=== PATIENT | female | born 2000 | race Caucasian/White ===

== ENCOUNTER 2024-12-31 14:10 | Inpatient (IN) | payer OTHER ==
[2024-12-31] MEDS: ELECTROLYTE-148 SOLN 1,000 ML IV SCH (14:45)
[2024-12-31 15:00] VITALS: BMI 29.0
[2024-12-31] MEDS ORDERED: morphine SULFATE/PF 1 MG/2 ML (2cc Syringe - QUVA) ONE (15:09)
[2024-12-31] MEDS ORDERED: PHENYLEPHRINE HCL 10 MG/1 ML SINGLE DOSE VIAL ONE (15:09)
[2024-12-31] MEDS ORDERED: KETOROLAC TROMETHAMINE 30 MG/1 ML VIAL ONE (15:09)
[2024-12-31] MEDS ORDERED: FENTANYL CITRATE/PF 50 MCG/ML VIAL ONE (15:09)
[2024-12-31] MEDS ORDERED: OXYTOCIN 10 UNITS/ML VIAL ONE (15:09)
[2024-12-31] MEDS ORDERED: ONDANSETRON 4 MG/2 ML VIAL ONE (15:09)
[2024-12-31] MEDS ORDERED: SODIUM CHLORIDE 0.9% P/F 10 ML VIAL IJ ONE (15:12)
[2024-12-31 15:13] LABS: ABSOLUTE IMMATURE GRANULOCYTES 0.09 x10^3/uL (0.0-0.031); BASOPHILS # 0.04 x10^3/uL (0.01-0.08); EOSINOPHIL % 0.1 % (0.7-5.8); EOSINOPHILS # 0.01 x10^3/uL (0.04-0.36); MCHC 32.1 g/dl (32.2-35.5); MEAN CELL VOLUME 97.6 fl (79.4-94.8); MEAN PLT VOLUME 10.0 fl (9.4-12.3); MONOCYTE # 0.80 x10^3/uL (0.24-0.86); MONOCYTE % 6.3 % (4.7-12.5); RDW 14.0 % (12.1-16.5)
[2024-12-31 15:18] LABS: INR 0.97 (0.83-1.09); PROTHROMBIN TIME (PATIENT) 10.7 SEC (9.7-13.0)
[2024-12-31 15:20] LABS: ACTIVATED PTT 25.6 SECONDS (25.2-36.5)
[2024-12-31] MEDS: CITRIC ACID/SODIUM CITRATE 30 ML UNIT-DOSE CUP PO ONE (15:30)
[2024-12-31] MEDS ORDERED: METHYLERGONOVINE MALEATE 0.2 MG/1 ML AMP IM PRN (17:03)
[2024-12-31] MEDS ORDERED: IBUPROFEN 800 MG/8 ML IJ IVPB PRN (17:04)
[2024-12-31] MEDS ORDERED: OXYTOCIN 20 UNITS in 0.9% NS 20 UNIT/1,000 ML INFUS.BAG IV ONE (17:10)
[2024-12-31] MEDS: OXYTOCIN 20 UNITS in 0.9% NS 20 UNIT/1,000 ML INFUS.BAG IV SCH (17:10)
[2024-12-31] MEDS ORDERED: ONDANSETRON 4 MG/2 ML VIAL IVPUSH PRN (17:49)
[2024-12-31 18:24] LABS: CORD BASE EXCESS -3.9 mmol/L (0-2); CORD HCO3 23.5 mmHg (20-29); CORD PCO2 51.2 mmHg (30-78); CORD pH 7.279 (7.14-7.44)
[2024-12-31 18:25] LABS: GLUCOSE,RANDOM 71.0 mg/dL (74-106)
[2024-12-31 18:25] LABS: CORD BASE EXCESS -1.7 mmol/L (0-2); CORD HCO3 24.0 mmHg (20-29); CORD PCO2 43.8 mmHg (30-78); CORD pH 7.356 (7.14-7.44)
[2024-12-31 18:27] LABS: CO2 17.0 mmol/L (21-32)
[2024-12-31 18:31] LABS: CREATININE 0.63 mg/dL (0.55-1.3)
[2024-12-31 20:27] VITALS: RESP 18
[2024-12-31] MEDS: SIMETHICONE 80 MG TAB.CHEW (FP) PO PRN (22:57)
[2024-12-31] MEDS: CEFAZOLIN SODIUM 2 GM in DEXTROSE 5%-WATER 100 ML IVPB SCH (22:57)
[2025-01-01 07:05] LABS: ABSOLUTE IMMATURE GRANULOCYTES 0.07 x10^3/uL (0.0-0.031); BASOPHILS # 0.06 x10^3/uL (0.01-0.08); EOSINOPHIL % 1.0 % (0.7-5.8); EOSINOPHILS # 0.12 x10^3/uL (0.04-0.36); MCHC 31.6 g/dl (32.2-35.5); MEAN CELL VOLUME 99.5 fl (79.4-94.8); MEAN PLT VOLUME 9.9 fl (9.4-12.3); MONOCYTE # 1.14 x10^3/uL (0.24-0.86); MONOCYTE % 9.3 % (4.7-12.5); RDW 14.0 % (12.1-16.5)
[2025-01-01] MEDS: DOCUSATE SODIUM 100 MG CAPSULE (FP) PO SCH (09:39)
[2025-01-01] MEDS: IBUPROFEN 600 MG TABLET (FP) PO PRN (09:39)
[2025-01-01] MEDS: ENOXAPARIN NA (PORCINE) 40 MG/0.4 ML DISP.SYRIN SQ SCH (13:40)
[2025-01-01] MEDS ORDERED: BISACODYL 10 MG SUPP.RECT RC PRN (17:03)
[2025-01-02] MEDS: ACETAMINOPHEN 325 MG TABLET (FP) PO PRN (09:06)
[2025-01-02] MEDS: MINERAL OIL/PET HY-PHL TOPICAL OINTMENT 454 GM JAR TP SCH (14:36)
[2025-01-03 08:31] LABS: ABSOLUTE IMMATURE GRANULOCYTES 0.05 x10^3/uL (0.0-0.031); BASOPHILS # 0.06 x10^3/uL (0.01-0.08); EOSINOPHIL % 3.6 % (0.7-5.8); EOSINOPHILS # 0.37 x10^3/uL (0.04-0.36); MCHC 31.0 g/dl (32.2-35.5); MEAN CELL VOLUME 100.8 fl (79.4-94.8); MEAN PLT VOLUME 10.2 fl (9.4-12.3); MONOCYTE # 0.93 x10^3/uL (0.24-0.86); MONOCYTE % 9.0 % (4.7-12.5); RDW 14.2 % (12.1-16.5)
[2025-01-03 10:31] VITALS: BP 112/67; PULSE 70; TEMP 98
== END 2025-01-03 14:31 | disposition home or self-care (01) | DRG 540 ==
LOC: JLDR 14:10 → J3W 19:29
PROVIDERS: ADMIT Obstetrics & Gynecology; ATTEND Obstetrics & Gynecology
PROC: 10D00Z1 Extraction of Products of Conception, Low, Open Approach (ICD-10-PCS; principal; 2024-12-31)
DX: O32.8XX0 Maternal care for other malpresentation of fetus, not applicable or unspecified (principal); O41.03X0 Oligohydramnios, third trimester, not applicable or unspecified; O69.81X0 Labor and delivery complicated by cord around neck, without compression, not applicable or unspecified; O99.824 Streptococcus B carrier state complicating childbirth; Z3A.38 38 weeks gestation of pregnancy; Z37.0 Single live birth
CPT/HCPCS: 36415; 36600; 80048; 82803; 85025; 85610; 85730; 86780; 86850; 86900; 86901; 88307-TC